=== PATIENT | female | born 1940 | race African-American/Black ===

== ENCOUNTER → 2018-10-17 | Day surgery (SDC) ==
[~2018-10-17] MED LIST: BSS WITH EPINEPHRINE OP ONE; DEX-MOXI-KETOR OPTH INJ 1/0.5/0.4 MG/ML IO ONE; LIDOCAINE 1% 20 ML MDV ID STA; LIDOCAINE 1%/PHENYLEPHRINE 1.5% BSS (SURGERY) INTRAOCULA ONE; SUBLIMAZE ONE; VERSED ONE; ZOFRAN 4 MG/2 ML IVP ONE; ZOFRAN 4 MG/2 ML ONE
[2018-10-17] MEDS: BETADINE OPTH PREP OP PRN ×2 (06:15→09:24)
[2018-10-17] MEDS: TETRACAINE 0.5% UNIT-DOSE OP PRN ×2 (06:15→09:03)
[2018-10-17] MEDS: CYCLOGYL 2% OPTH OP PRN ×3 (06:16→06:26)
[2018-10-17 06:41] VITALS: TEMP 97.4
[2018-10-23 13:52] VITALS: BP 123/78
== END ==
LOC: SURG 06:01
PROVIDERS: ATTEND Ophthalmology
DX: H25.811 Combined forms of age-related cataract, right eye (principal)

== ENCOUNTER 2018-10-30 06:53 | Day surgery (SDC) ==
[2018-10-30] MEDS: TETRACAINE 0.5% UNIT-DOSE OP PRN ×2 (07:10→08:40)
[2018-10-30] MEDS: BETADINE OPTH PREP OP PRN ×2 (07:10→08:40)
[2018-10-30] MEDS: CYCLOGYL 2% OPTH OP PRN ×3 (07:11→07:21)
[2018-10-30] MEDS ORDERED: LIDOCAINE 1% 20 ML MDV ID STA (07:23)
[2018-10-30] MEDS ORDERED: ZOFRAN 4 MG/2 ML IVP ONE (07:23)
[2018-10-30] MEDS ORDERED: SUBLIMAZE ONE (08:39)
[2018-10-30] MEDS ORDERED: ZOFRAN 4 MG/2 ML ONE (08:39)
[2018-10-30] MEDS ORDERED: VERSED ONE (08:39)
[2018-10-30] MEDS: BSS WITH EPINEPHRINE OP ONE ×2 (08:48→08:53)
[2018-10-30] MEDS: DEX-MOXI-KETOR OPTH INJ 1/0.5/0.4 MG/ML IO ONE ×2 (08:49→08:53)
[2018-10-30] MEDS: LIDOCAINE 1%/PHENYLEPHRINE 1.5% BSS (SURGERY) INTRAOCULA ONE ×2 (08:49→08:53)
[2018-10-30 15:04] VITALS: BP 149/85; TEMP 96.4
== END 2018-10-30 09:29 | disposition home or self-care (01) ==
LOC: SURG 06:53
PROVIDERS: ATTEND Ophthalmology
DX: H25.812 Combined forms of age-related cataract, left eye (principal)